=== PATIENT | female | born 1985 | race Caucasian/White ===

== ENCOUNTER 2016-11-26 19:36 | Emergency (ER) | payer OTHER ==
[~2016-11-26] VITALS: Ht 152.4 cm; Wt 67.5 kg
[~2016-11-26 19:36] MED LIST: KLONOPIN0.5 M1 PO; MOTRIN800 MG PO; PROZAC20 M1 PO; Phenergan PO; VISTARIL25 MG PO; Zantac PO
[2016-11-26 21:53] LABS: HEMATOCRIT 40.8 % (36.0-46.0); MCH 29.5 PG (29.0-34.0); MCHC 33.6 G/DL (30.0-36.0); MCV 87.7 FL (83-99); MEAN PLAT.VOLUME 11.1 uM^3 (9.5-12.4); PLATELET COUNT 251 K/uL (156-360); RBC DIS.WIDTH-CV 12.8 % (11.8-14.6); RED BLOOD COUNT 4.65 M/uL (3.80-5.20); WHITE BLOOD COUNT 9.2 K/uL (4.1-10.2)
[2016-11-26 22:03] LABS: CHLORIDE 105 mEq/L (99-109); POTASSIUM 4.4 mEq/L (3.7-5.4)
[2016-11-26 22:04] LABS: SODIUM 140 mEq/L (136-147)
[2016-11-26 22:05] LABS: GLUCOSE 88 mg/dL (70-99)
[2016-11-26 22:07] LABS: ANION GAP 9 MEQ/L (2-14)
[2016-11-26 22:09] LABS: GFR ESTIMATE (CALCULATED) > 59 mL/min/
[2016-11-26 22:10] LABS: UREA NITROGEN (BUN) 8 mg/dL (9-23)
[2016-11-26 22:17] LABS: QUANTITATIVE HCG < 4.0 MIU/ML
[2016-11-26 23:33] VITALS: BP 106/67
== END 2016-11-27 00:04 | disposition home or self-care (01) ==
LOC: EME 19:36
PROVIDERS: Physician Assistant
DX: K08.89 Other specified disorders of teeth and supporting structures (principal); Z87.891 Personal history of nicotine dependence
CPT/HCPCS: 70487; 80048; 84702; 85027; 99281; 99284; J7030

== ENCOUNTER 2017-02-24 16:51 | Emergency (ER) | payer OTHER ==
[~2017-02-24] VITALS: Ht 152.4 cm; Wt 67.3 kg
[2017-02-24] MEDS ORDERED: FLEXERIL10 MG PO (18:48)
[2017-02-24 19:50] VITALS: BP 100/72
== END 2017-02-24 19:54 | disposition home or self-care (01) ==
LOC: EME 16:51
DX: S16.1XXA Strain of muscle, fascia and tendon at neck level, initial encounter (principal); S06.0X0A Concussion without loss of consciousness, initial encounter; V43.52XA Car driver injured in collision with other type car in traffic accident, initial encounter; Y92.488 Other paved roadways as the place of occurrence of the external cause; F32.9 Major depressive disorder, single episode, unspecified; F41.9 Anxiety disorder, unspecified
CPT/HCPCS: 72040; 99281; 99283

== ENCOUNTER 2017-07-06 12:59 | Emergency (ER) | payer OTHER ==
[~2017-07-06] VITALS: Ht 149.9 cm; Wt 68.7 kg
[~2017-07-06 12:59] MED LIST changes: +FLEXERIL10 MG PO
[2017-07-06] MEDS ORDERED: LORAZEPAM2 MG PO (13:29)
[2017-07-06] MEDS ORDERED: WELLBUTRIN XL150 MG PO (13:29)
[2017-07-06] MEDS ORDERED: ADDERALL20 MG PO (13:29)
[2017-07-06] MEDS ORDERED: ESCITALOPRAM OX20 MG PO (13:30)
[2017-07-06] MEDS ORDERED: TOPIRAMATE25 MG PO (13:30)
[2017-07-06 14:26] LABS: MCH 28.9 PG (29.0-34.0); MCHC 32.9 G/DL (30.0-36.0); MCV 87.8 FL (83-99); MEAN PLAT.VOLUME 10.8 uM^3 (9.5-12.4); PLATELET COUNT 247 K/uL (156-360); RBC DIS.WIDTH-CV 12.6 % (11.8-14.6); RED BLOOD COUNT 4.67 M/uL (3.80-5.20); WHITE BLOOD COUNT 10.6 K/uL (4.1-10.2)
[2017-07-06 14:37] LABS: CHLORIDE 109 mEq/L (99-109); POTASSIUM 3.9 mEq/L (3.7-5.4); SODIUM 140 mEq/L (136-147)
[2017-07-06 14:39] LABS: GLUCOSE 84 mg/dL (70-99)
[2017-07-06 14:40] LABS: ANION GAP 10 MEQ/L (2-14)
[2017-07-06 14:41] LABS: TOTAL BILIRUBIN 0.4 mg/dL (0.0-1.0)
[2017-07-06 14:42] LABS: ALKALINE PHOSPHATASE 69 IU/L (3-129)
[2017-07-06 14:42] LABS: ADD MIUA? YES; BILIRUBIN NEGATIVE; BLOOD NEGATIVE; COLOR YELLOW ((YELLOW)); GLUCOSE (STRIP) NEGATIVE; KETONES NEGATIVE; LEUKOCYTES NEGATIVE; NITRITE NEGATIVE; PROTEIN (STRIP) NEGATIVE; SPECIFIC GRAVITY 1.017 (1.000-1.030); UROBILINOGEN 0.2 MG/DL (0.2-1.0)
[2017-07-06 14:43] LABS: GFR ESTIMATE (CALCULATED) > 59 mL/min/
[2017-07-06 14:44] LABS: UREA NITROGEN (BUN) 11 mg/dL (9-23)
[2017-07-06 14:45] LABS: INTERNAL CONTROL VALID? YES
[2017-07-06 14:49] LABS: BACTERIA NONE SEEN /HPF; EPITHELIAL CELLS 1+ /HPF; MUCUS TRACE /LPF; RED BLOOD CELLS 0-5 /HPF (0-5); UCUL ADDED? NO; WHITE BLOOD CELLS 0-5 /HPF (0-5)
[2017-07-06] MEDS ORDERED: ZOFRAN ODT4 MG PO (16:25)
[2017-07-06] MEDS ORDERED: TRAMADOL HCL50 MG PO (16:25)
[2017-07-06 16:36] VITALS: BP 103/71
== END 2017-07-06 16:36 | disposition home or self-care (01) ==
LOC: EME 12:59
PROVIDERS: Nurse Practitioner Family
DX: R55 Syncope and collapse (principal); S01.81XA Laceration without foreign body of other part of head, initial encounter; W01.198A Fall on same level from slipping, tripping and stumbling with subsequent striking against other object, initial encounter; Y93.G1 Activity, food preparation and clean up; Y92.000 Kitchen of unspecified non-institutional (private) residence as the place of occurrence of the external cause; R42 Dizziness and giddiness; R51 Headache; M54.9 Dorsalgia, unspecified; R53.83 Other fatigue; H53.149 Visual discomfort, unspecified
CPT/HCPCS: 70450; 80053; 81003; 84703; 85027; 93005; 99281; 99284; J1885

== ENCOUNTER 2018-04-07 23:26 | Outpatient (CLI) | payer OTHER ==
[~2018-04-07] VITALS: Ht 152.4 cm; Wt 92.1 kg
[~2018-04-07 23:26] MED LIST changes: +ADDERALL20 MG PO; +ESCITALOPRAM OX20 MG PO; +LORAZEPAM2 MG PO; +TOPIRAMATE25 MG PO; +TRAMADOL HCL50 MG PO; +WELLBUTRIN XL150 MG PO; +ZOFRAN ODT4 MG PO
[2018-04-07] MEDS ORDERED: AMBIEN5 MG PO (23:59)
[2018-04-08 00:03] VITALS: BP 123/73
== END 2018-04-08 00:51 | disposition home or self-care (01) ==
LOC: LDRP-OP 23:26 → 2WEST 23:27 → LDRP-OP 05-28 15:54
DX: O47.1 False labor at or after 37 completed weeks of gestation (principal); O24.410 Gestational diabetes mellitus in pregnancy, diet controlled; O40.3XX0 Polyhydramnios, third trimester, not applicable or unspecified; O99.213 Obesity complicating pregnancy, third trimester; O09.213 Supervision of pregnancy with history of pre-term labor, third trimester; Z3A.37 37 weeks gestation of pregnancy
CPT/HCPCS: 59025; G0378; Q0177

== ENCOUNTER 2018-04-19 11:07 | Outpatient (CLI) | payer OTHER ==
[~2018-04-19] VITALS: Ht 152.4 cm; Wt 92.1 kg
[~2018-04-19 11:07] MED LIST changes: +AMBIEN5 MG PO
[2018-04-19 11:27] VITALS: BP 137/88
[2018-04-19] MEDS ORDERED: ASPIRIN81 M2 PO (11:36)
[2018-04-19] MEDS ORDERED: PRENATAL TABLE1 EAC3 PO (11:36)
[2018-04-19 12:06] VITALS: BP 126/77
[2018-04-19 14:37] VITALS: BP 125/74
[2018-04-19 16:13] LABS: AMPHETAMINE NEGATIVE (500 ng/mL); BARBITURATES NEGATIVE (200 ng/mL); BENZODIAZEPINES NEGATIVE (150 ng/mL); BUPRENORPHINE NEGATIVE (10 ng/mL); COCAINE NEGATIVE (150 ng/mL); METHADONE NEGATIVE (200 ng/mL); METHAMPHETAMINE NEGATIVE (500 ng/mL); OPIATES (MORPHINE) NEGATIVE (100 ng/mL); OXYCODONE NEGATIVE (100 ng/mL); PHENCYCLIDINE NEGATIVE (25 ng/mL); PROPOXYPHENE NEGATIVE (300 ng/mL); THC CANNABINOIDS NEGATIVE (50 ng/mL); TRICYCLIC ANTIDEPRESSANTS NEGATIVE (300 ng/mL)
== END 2018-04-19 15:06 | disposition home or self-care (01) ==
LOC: LDRP-OP 11:07 → 2WEST 11:08 → LDRP-OP 04-20 07:23
PROVIDERS: Advanced Practice Midwife; Obstetrics & Gynecology
DX: O47.1 False labor at or after 37 completed weeks of gestation (principal); Z3A.38 38 weeks gestation of pregnancy
CPT/HCPCS: 59025; 82948; 82950; G0378

== ENCOUNTER 2018-04-20 07:50 | Inpatient (IN) | payer OTHER ==
[~2018-04-20] VITALS: Ht 152.4 cm; Wt 92.3 kg
[2018-04-20] VITALS (26 sets, daily range): BP systolic 102–176; BP diastolic 61–101
[~2018-04-20 07:50] MED LIST changes: +ASPIRIN81 M2 PO; +PRENATAL TABLE1 EAC3 PO
[2018-04-20 09:27] LABS: BASOPHIL (%) 0.2 % (0-1); EOSINOPHIL (%) 1.6 % (0-5); EOSINOPHIL COUNT 0.2 K/uL (0-0.3); HEMATOCRIT 36.7 % (36.0-46.0); HEMOGLOBIN 12.5 G/DL (11.9-15.5); IMMATURE GRANULOCYTE (%) 0.4 % (0.0-0.7); LYMPHOCYTE (%) 14.1 % (15-42); LYMPHOCYTE COUNT 1.8 K/uL (1.0-2.8); MCH 29.5 PG (29.0-34.0); MCHC 34.1 G/DL (30.0-36.0); MCV 86.6 FL (83-99); MONOCYTE (%) 5.1 % (3-12); MONOCYTE COUNT 0.7 K/uL (0-0.8); NEUTROPHIL (%) 78.6 % (45-76); NEUTROPHIL COUNT 10.1 K/uL (1.8-6.4); PLATELET COUNT 157 K/uL (156-360); RBC DIS.WIDTH-CV 13.9 % (11.8-14.6); RBC DIS.WIDTH-SD 43.9 % (39-53); RED BLOOD COUNT 4.24 M/uL (3.80-5.20); WHITE BLOOD COUNT 12.9 K/uL (4.1-10.2)
[2018-04-21 06:42] LABS: BASOPHIL (%) 0.2 % (0-1); EOSINOPHIL (%) 1.4 % (0-5); EOSINOPHIL COUNT 0.2 K/uL (0-0.3); HEMATOCRIT 33.9 % (36.0-46.0); HEMOGLOBIN 11.2 G/DL (11.9-15.5); IMMATURE GRANULOCYTE (%) 0.6 % (0.0-0.7); LYMPHOCYTE (%) 16.2 % (15-42); LYMPHOCYTE COUNT 2.5 K/uL (1.0-2.8); MCH 28.9 PG (29.0-34.0); MCV 87.6 FL (83-99); MONOCYTE (%) 7.9 % (3-12); MONOCYTE COUNT 1.2 K/uL (0-0.8); NEUTROPHIL (%) 73.7 % (45-76); NEUTROPHIL COUNT 11.4 K/uL (1.8-6.4); PLATELET COUNT 131 K/uL (156-360); RBC DIS.WIDTH-CV 14.4 % (11.8-14.6); RED BLOOD COUNT 3.87 M/uL (3.80-5.20); WHITE BLOOD COUNT 15.4 K/uL (4.1-10.2)
[2018-04-21 07:15] VITALS: BP 116/69
[2018-04-21 15:26] VITALS: BP 120/73
[2018-04-21 23:32] VITALS: BP 118/68
[2018-04-22 08:07] VITALS: BP 130/78
== END 2018-04-22 16:10 | disposition home or self-care (01) | DRG 774 ==
LOC: LDRP-OP 07:50 → 2WEST 07:51 → LDRP-OP 15:29 → 2WEST 17:31 → LDRP-OP 05-28 15:25
PROVIDERS: Advanced Practice Midwife; Obstetrics & Gynecology
PROC: 0HQ9XZZ Repair Perineum Skin, External Approach (ICD-10-PCS; principal; 2018-04-20)
PROC: 10E0XZZ Delivery of Products of Conception, External Approach (ICD-10-PCS; principal; 2018-04-20)
PROC: 3E0R3BZ Introduction of Anesthetic Agent into Spinal Canal, Percutaneous Approach (ICD-10-PCS; principal; 2018-04-20)
PROC: 00HU33Z Insertion of Infusion Device into Spinal Canal, Percutaneous Approach (ICD-10-PCS; principal; 2018-04-20)
PROC: 3E0P7VZ Introduction of Hormone into Female Reproductive, Via Natural or Artificial Opening (ICD-10-PCS; principal; 2018-04-20)
PROC: 10907ZC Drainage of Amniotic Fluid, Therapeutic from Products of Conception, Via Natural or Artificial Opening (ICD-10-PCS; principal; 2018-04-20)
DX: O70.0 First degree perineal laceration during delivery (principal); O76 Abnormality in fetal heart rate and rhythm complicating labor and delivery; O69.1XX0 Labor and delivery complicated by cord around neck, with compression, not applicable or unspecified; O40.3XX0 Polyhydramnios, third trimester, not applicable or unspecified; O24.420 Gestational diabetes mellitus in childbirth, diet controlled; O99.413 Diseases of the circulatory system complicating pregnancy, third trimester; I34.1 Nonrheumatic mitral (valve) prolapse; Z3A.39 39 weeks gestation of pregnancy; Z37.0 Single live birth; O99.353 Diseases of the nervous system complicating pregnancy, third trimester; G43.909 Migraine, unspecified, not intractable, without status migrainosus; O99.214 Obesity complicating childbirth; E66.9 Obesity, unspecified; Z68.32 Body mass index [BMI] 32.0-32.9, adult; O99.343 Other mental disorders complicating pregnancy, third trimester; F32.9 Major depressive disorder, single episode, unspecified; F41.9 Anxiety disorder, unspecified; Z87.891 Personal history of nicotine dependence
CPT/HCPCS: 85025; C1755; J0595; J3010; J7120